=== PATIENT | female | born 1955 | race Hispanic/Latino ===

== ENCOUNTER → 2024-04-11 | Outpatient (REF) | payer MEDICARE | LOC: MAMMO 07:52 | PROVIDERS: ATTEND Family Medicine | DX: Z12.31 Encounter for screening mammogram for malignant neoplasm of breast (principal); M85.88 Other specified disorders of bone density and structure, other site | CPT/HCPCS: 77067; 77080 ==

== ENCOUNTER → 2024-05-08 | Outpatient (REF) | payer MEDICARE | LOC: MAMMO 08:17 | PROVIDERS: ATTEND Family Medicine | DX: R92.8 Other abnormal and inconclusive findings on diagnostic imaging of breast (principal) ==